=== PATIENT | male | born 1970 | race African-American/Black ===

== ENCOUNTER 2022-11-20 14:34 | Emergency (ER) | payer BC ==
[~2022-11-20] VITALS: Ht 190.5 cm; Wt 95.3 kg
== END 2022-11-20 18:04 | disposition home or self-care (01) ==
LOC: ER 14:34
DX: M54.9 Dorsalgia, unspecified (principal); M54.2 Cervicalgia; V49.88XA Car occupant (driver) (passenger) injured in other specified transport accidents, initial encounter; Y93.89 Activity, other specified; Y92.413 State road as the place of occurrence of the external cause